=== PATIENT | female | born 1990 | race Caucasian/White ===

== ENCOUNTER 2017-11-29 07:29 | Inpatient (IN) | payer OTHER ==
[~2017-11-29] VITALS: Ht 170.2 cm; Wt 75.7 kg
[2017-11-29] VITALS (22 sets, daily range): BP systolic 103–141; BP diastolic 55–81
[~2017-11-29 07:29] MED LIST: METHERGINE0.2 MG PO; MOTRIN800 MG PO; Subutex
[2017-11-29 08:46] LABS: BASOPHIL (%) 0.6 % (0-1); BASOPHIL COUNT 0.1 K/uL (0-0.1); EOSINOPHIL (%) 2.2 % (0-5); EOSINOPHIL COUNT 0.3 K/uL (0-0.3); HEMATOCRIT 33.3 % (36.0-46.0); HEMOGLOBIN 11.3 G/DL (11.9-15.5); IMMATURE GRANULOCYTE (%) 2.5 % (0.0-0.7); LYMPHOCYTE (%) 18.3 % (15-42); LYMPHOCYTE COUNT 2.1 K/uL (1.0-2.8); MCH 29.9 PG (29.0-34.0); MCHC 33.9 G/DL (30.0-36.0); MCV 88.1 FL (83-99); MONOCYTE (%) 7.2 % (3-12); MONOCYTE COUNT 0.8 K/uL (0-0.8); NEUTROPHIL (%) 69.2 % (45-76); NEUTROPHIL COUNT 7.8 K/uL (1.8-6.4); PLATELET COUNT 133 K/uL (156-360); RBC DIS.WIDTH-CV 13.7 % (11.8-14.6); RBC DIS.WIDTH-SD 43.8 % (39-53); RED BLOOD COUNT 3.78 M/uL (3.80-5.20); WHITE BLOOD COUNT 11.3 K/uL (4.1-10.2)
[2017-11-29 09:20] LABS: AMPHETAMINE NEGATIVE (500 ng/mL); BARBITURATES NEGATIVE (200 ng/mL); BENZODIAZEPINES NEGATIVE (150 ng/mL); BUPRENORPHINE PRESUMPTIVE POSITIVE (10 ng/mL); COCAINE NEGATIVE (150 ng/mL); METHADONE NEGATIVE (200 ng/mL); METHAMPHETAMINE NEGATIVE (500 ng/mL); OPIATES (MORPHINE) NEGATIVE (100 ng/mL); OXYCODONE NEGATIVE (100 ng/mL); PHENCYCLIDINE NEGATIVE (25 ng/mL); PROPOXYPHENE NEGATIVE (300 ng/mL); THC CANNABINOIDS NEGATIVE (50 ng/mL); TRICYCLIC ANTIDEPRESSANTS NEGATIVE (300 ng/mL)
[2017-11-29] MEDS ORDERED: BUSPAR30 MG PO (09:24)
[2017-11-29] MEDS ORDERED: ZYRTEC5 MG PO (09:25)
[2017-11-29] MEDS ORDERED: FLONASE16 G1 BOTH NARES (09:26)
[2017-11-29 11:07] LABS: TREPONEMA ANTIBODY NEGATIVE (NEGATIVE)
[2017-11-30 05:56] LABS: BASOPHIL (%) 0.4 % (0-1); BASOPHIL COUNT 0.1 K/uL (0-0.1); EOSINOPHIL (%) 2.4 % (0-5); EOSINOPHIL COUNT 0.3 K/uL (0-0.3); HEMATOCRIT 34.1 % (36.0-46.0); HEMOGLOBIN 11.7 G/DL (11.9-15.5); IMMATURE GRANULOCYTE (%) 1.1 % (0.0-0.7); LYMPHOCYTE (%) 21.7 % (15-42); MCH 30.7 PG (29.0-34.0); MCHC 34.3 G/DL (30.0-36.0); MCV 89.5 FL (83-99); MONOCYTE (%) 7.6 % (3-12); MONOCYTE COUNT 1.1 K/uL (0-0.8); NEUTROPHIL (%) 66.8 % (45-76); NEUTROPHIL COUNT 9.3 K/uL (1.8-6.4); PLATELET COUNT 146 K/uL (156-360); RBC DIS.WIDTH-CV 13.7 % (11.8-14.6); RBC DIS.WIDTH-SD 44.1 % (39-53); RED BLOOD COUNT 3.81 M/uL (3.80-5.20); WHITE BLOOD COUNT 13.9 K/uL (4.1-10.2)
[2017-11-30 07:01] VITALS: BP 109/54
[2017-11-30 14:33] VITALS: BP 101/58
[2017-11-30 22:17] VITALS: BP 104/59
[2017-12-01 07:21] VITALS: BP 110/57
[2017-12-01] MEDS ORDERED: IBUPROFEN800 MG PO (08:56)
[2017-12-01 14:42] VITALS: BP 112/68
== END 2017-12-01 22:58 | disposition home or self-care (01) | DRG 775 ==
LOC: LDRP-OP 07:29 → 2WEST 07:30 → LDRP-OP 17:58 → 2WEST 12-01 12:21 → LDRP-OP 12-25 18:29
PROVIDERS: Advanced Practice Midwife
DX: O36.5930 Maternal care for other known or suspected poor fetal growth, third trimester, not applicable or unspecified (principal); D64.9 Anemia, unspecified; O99.02 Anemia complicating childbirth; O99.334 Smoking (tobacco) complicating childbirth; O99.344 Other mental disorders complicating childbirth; F41.9 Anxiety disorder, unspecified; F17.200 Nicotine dependence, unspecified, uncomplicated; O99.324 Drug use complicating childbirth; O69.81X0 Labor and delivery complicated by cord around neck, without compression, not applicable or unspecified; Z37.0 Single live birth; Z3A.40 40 weeks gestation of pregnancy
CPT/HCPCS: 85025; 86780; C1755; J0571; J3010; J7120